=== PATIENT | female | born 1975 | race American Indian/Alaskan Native ===

== ENCOUNTER 2022-01-11 20:40 | Emergency (ER) | payer SELFPAY ==
[2022-01-11] MEDS ORDERED: NALOXONE 0.4 MG/1 ML INJ IV PRN (21:21)
[2022-01-11] MEDS ORDERED: ONDANSETRON 4 MG/2 ML INJ IV ONE (21:21)
--- NOTE | 2022-01-11 21:26 | Emergency Department Report ---
<CLAIRE ZHAO - Last Filed: 01/12/22 04:21> History of Present Illness - General Chief Complaint: Overdose Stated Complaint: OVERDOSE Time Seen by Provider: 01/11/22 21:14 - Related Data Previous Rx's Medication Instructions Recorded Last Taken Type Moxifloxacin HCl [Avelox] 400 mg PO QDAY 7 Days #7 01/12/22 Unknown Rx Allergies Allergy/AdvReac Type Severity Reaction Status Date / Time Penicillins Allergy Unknown Unknown Verified 01/11/22 21:08 ED Past Medical Hx - Medications Home Medications: Home Medications Medication Instructions Recorded Confirmed Last Taken Type Moxifloxacin HCl [Avelox] 400 mg PO QDAY 7 Days #7 01/12/22 Unknown Rx ED Course - Reevaluation(s) Reevaluation #1: 01/12/22 01:27 RECEIVED SIGN OUT FROM MY [employer]. AT THE TIME OF MY EVALUATION, PATIENT AOX4; STATES SHE DIDN'T SNORT COCAINE AND PATIENT STATES SHE WILL PRODUCE URINE FOR UDS. CT CONCERN FOR BILATERAL ASPIRATION PNA; WILL START EMPERICALLY ON CEFTRIAXONE 1G + FLAGYL 500MG X1 AND D/C PATIENT ON MOXIFLOXACIN. ED Medical Decision Making - Lab Data Result diagrams: 01/11/22 21:30 01/11/22 21:30 - EKG Data -: EKG Interpreted by Me EKG shows normal: sinus rhythm Rate: normal - EKG Data 01/12/22 02:29 EKG AT 2342: SINSU RHYTHM AT 84 BPM; NO ST ELEVATION/DEPRESSION; NO WELLEN WAVE. NO PROLONG QT/QTC. ED Disposition Clinical Impression: Cocaine abuse, Amphetamine abuse, Tetrahydrocannabinol (THC) dependence, Aspiration pneumonia, Polysubstance (excluding opioids) dependence Disposition: 01 HOME / SELF CARE / HOMELESS Is pt being admited?: No Does the pt Need Aspirin: No Condition: Stable Instructions: Aspiration Pneumonia, Bacterial Pneumonia (ED) Additional Instructions: Your work-up revealed that he have aspiration pneumonia, please take the antibiotics prescribed for you and make a follow-up appointment with your primary care provider to be seen within 3 days for further outpatient evaluation. Return to the ER if you have any new symptoms. Prescriptions: Moxifloxacin HCl [Avelox] 400 mg PO QDAY 7 Days #7 Referrals: PRIMARY CARE, [Primary Care Provider] - 3-5 Days Time of Disposition: 04:08 <JAGALBERT David - Last Filed: 01/13/22 00:04> History of Present Illness - General Source: EMS Mode of arrival: Stretcher Limitations: Altered Mental Status - History of Present Illness Initial Comments: 46-year-old female with no known past medical history presents to the hospital after an unintentional drug overdose. As per EMS boyfriend at the scene states that patient snorted a line of cocaine and then became unresponsive. Upon EMS arrival patient had a respiration rate 3 breaths/min and had oral cyanosis. Initial pulse ox at the scene was 50%. Patient was treated with nasal pharyngeal airway and qih-ricab-ttie respirations and received Narcan 2 mg IM and then Narcan 2 mg IV. Patient's respirations and pulse ox improved with GCS improvement to 14 with some mild residual drowsiness. Accu-Chek 150. Patient received 750 mL of normal saline IV prior to ED arrival. Patient developed vomiting as she was being placed in her ED room. EMS reports that boyfriend fled the scene because he had active warrants. ED Review of Systems ROS: Stated complaint: OVERDOSE Other details as noted in HPI Comment: All other systems reviewed and negative ED Past Medical Hx - Past Medical History Previous Medical History?: No ED Physical Exam - General Limitations: Altered Mental Status ED Course Vital Signs 01/11/22 01/12/22 01/12/22 21:04 03:20 04:52 Temperature 98.4 F Pulse Rate 90 90 Respiratory 18 18 Rate Blood Pressure 118/81 118/69 [Left] O2 Sat by Pulse 97 99 99 Oximetry ED Medical Decision Making - Lab Data Result diagrams: 01/11/22 21:30 01/11/22 21:30 Lab Results 01/11/22 01/11/22 01/11/22 Range/Units 21:30 21:30 21:30 WBC 15.0 H (4.5-11.0) K/mm3 RBC 3.64 L (3.65-5.03) M/mm3 Hgb 11.5 (10.1-14.3) gm/dl Hct 35.0 (30.3-42.9) % MCV 96 (79-97) fl MCH 32 (28-32) pg MCHC 33 (30-34) % RDW 13.7 (13.2-15.2) % Plt Count 306 (140-440) K/mm3 Lymph % (Auto) 13.9 (13.4-35.0) % [place] % (Auto) 8.8 H (0.0-7.3) % Eos % (Auto) 0.3 (0.0-4.3) % Baso % (Auto) 0.4 (0.0-1.8) % Lymph # (Auto) 2.1 (1.2-5.4) K/mm3 [place] # (Auto) 1.3 H (0.0-0.8) K/mm3 Eos # (Auto) 0.0 (0.0-0.4) K/mm3 Baso # (Auto) 0.1 (0.0-0.1) K/mm3 Seg Neutrophils % 76.6 H (40.0-70.0) % Seg Neutrophils # 11.5 H (1.8-7.7) K/mm3 Sodium 141 (137-145) mmol/L Potassium 4.1 (3.6-5.0) mmol/L Chloride 106.2 (98-107) mmol/L Carbon Dioxide 24 (22-30) mmol/L Anion Gap 15 mmol/L BUN 11 (7-17) mg/dL Creatinine 0.7 (0.6-1.2) mg/dL Estimated GFR > 60 ml/min BUN/Creatinine Ratio 16 % Glucose 104 H (65-100) mg/dL Calcium 8.2 L (8.4-10.2) mg/dL Magnesium (1.7-2.3) mg/dL Total Bilirubin 0.30 (0.1-1.2) mg/dL AST 18 (5-40) units/L ALT 11 (7-56) units/L Alkaline Phosphatase 73 (35-129) units/L Total Creatine Kinase 88 (30-135) units/L Total Protein 6.8 (6.3-8.2) g/dL Albumin 4.3 (3.9-5) g/dL Albumin/Globulin Ratio 1.7 % HCG, Quant 1.00 (0-4) mIU/mL Urine Color (Yellow) Urine Turbidity (Clear) Specific [place] (Man) (1.003-1.030) Ur Protein (Man) (Negative) mg/dL Ur Ketones (Man) (Negative) Ur Nitrite (Man) (Negative) Ur Reducing Substances Urine Bilirubin (Man) (Negative) Urine Ictotest Leukocyte Esterase (Man) (Negative) Urine WBC (Auto) (0.0-6.0) /HPF Urine RBC (Auto) (0.0-6.0) /HPF U Epithel Cells (Auto) (0-13.0) /HPF Urine Bacteria (Auto) (Negative) /HPF Urine RBC (Manual) (Negative) Urine Mucus /HPF Salicylates (2.8-20.0) mg/dL Urine Opiates Screen Urine Methadone Screen Acetaminophen (10.0-30.0) ug/mL Ur Barbiturates Screen Ur Phencyclidine Scrn Ur Amphetamines Screen U Benzodiazepines Scrn Urine Cocaine Screen U Marijuana (THC) Screen Drugs of Abuse Note Plasma/Serum Alcohol (0-0.07) % 01/11/22 01/11/22 01/11/22 Range/Units 21:30 21:30 21:30 WBC (4.5-11.0) K/mm3 RBC (3.65-5.03) M/mm3 Hgb (10.1-14.3) gm/dl Hct (30.3-42.9) % MCV (79-97) fl MCH (28-32) pg MCHC (30-34) % RDW (13.2-15.2) % Plt Count (140-440) K/mm3 Lymph % (Auto) (13.4-35.0) % [place] % (Auto) (0.0-7.3) % Eos % (Auto) (0.0-4.3) % Baso % (Auto) (0.0-1.8) % Lymph # (Auto) (1.2-5.4) K/mm3 [place] # (Auto) (0.0-0.8) K/mm3 Eos # (Auto) (0.0-0.4) K/mm3 Baso # (Auto) (0.0-0.1) K/mm3 Seg Neutrophils % (40.0-70.0) % Seg Neutrophils # (1.8-7.7) K/mm3 Sodium (137-145) mmol/L Potassium (3.6-5.0) mmol/L Chloride (98-107) mmol/L Carbon Dioxide (22-30) mmol/L Anion Gap mmol/L BUN (7-17) mg/dL Creatinine (0.6-1.2) mg/dL Estimated GFR ml/min BUN/Creatinine Ratio % Glucose (65-100) mg/dL Calcium (8.4-10.2) mg/dL Magnesium (1.7-2.3) mg/dL Total Bilirubin (0.1-1.2) mg/dL AST (5-40) units/L ALT (7-56) units/L Alkaline Phosphatase (35-129) units/L Total Creatine Kinase (30-135) units/L Total Protein (6.3-8.2) g/dL Albumin (3.9-5) g/dL Albumin/Globulin Ratio % HCG, Quant (0-4) mIU/mL Urine Color (Yellow) Urine Turbidity (Clear) Specific [place] (Man) (1.003-1.030) Ur Protein (Man) (Negative) mg/dL Ur Ketones (Man) (Negative) Ur Nitrite (Man) (Negative) Ur Reducing Substances Urine Bilirubin (Man) (Negative) Urine Ictotest Leukocyte Esterase (Man) (Negative) Urine WBC (Auto) (0.0-6.0) /HPF Urine RBC (Auto) (0.0-6.0) /HPF U Epithel Cells (Auto) (0-13.0) /HPF Urine Bacteria (Auto) (Negative) /HPF Urine RBC (Manual) (Negative) Urine Mucus /HPF Salicylates < 0.3 L (2.8-20.0) mg/dL Urine Opiates Screen Urine Methadone Screen Acetaminophen 5.0 L (10.0-30.0) ug/mL Ur Barbiturates Screen Ur Phencyclidine Scrn Ur Amphetamines Screen U Benzodiazepines Scrn Urine Cocaine Screen U Marijuana (THC) Screen Drugs of Abuse Note Plasma/Serum Alcohol < 0.01 (0-0.07) % 01/11/22 01/12/22 01/12/22 Range/Units 21:30 03:07 03:07 WBC (4.5-11.0) K/mm3 RBC (3.65-5.03) M/mm3 Hgb (10.1-14.3) gm/dl Hct (30.3-42.9) % MCV (79-97) fl MCH (28-32) pg MCHC (30-34) % RDW (13.2-15.2) % Plt Count (140-440) K/mm3 Lymph % (Auto) (13.4-35.0) % [place] % (Auto) (0.0-7.3) % Eos % (Auto) (0.0-4.3) % Baso % (Auto) (0.0-1.8) % Lymph # (Auto) (1.2-5.4) K/mm3 [place] # (Auto) (0.0-0.8) K/mm3 Eos # (Auto) (0.0-0.4) K/mm3 Baso # (Auto) (0.0-0.1) K/mm3 Seg Neutrophils % (40.0-70.0) % Seg Neutrophils # (1.8-7.7) K/mm3 Sodium (137-145) mmol/L Potassium (3.6-5.0) mmol/L Chloride (98-107) mmol/L Carbon Dioxide (22-30) mmol/L Anion Gap mmol/L BUN (7-17) mg/dL Creatinine (0.6-1.2) mg/dL Estimated GFR ml/min BUN/Creatinine Ratio % Glucose (65-100) mg/dL Calcium (8.4-10.2) mg/dL Magnesium 2.10 (1.7-2.3) mg/dL Total Bilirubin (0.1-1.2) mg/dL AST (5-40) units/L ALT (7-56) units/L Alkaline Phosphatase (35-129) units/L Total Creatine Kinase (30-135) units/L Total Protein (6.3-8.2) g/dL Albumin (3.9-5) g/dL Albumin/Globulin Ratio % HCG, Quant (0-4) mIU/mL Urine Color Yellow (Yellow) Urine Turbidity Clear (Clear) Specific [place] (Man) 1.005 (1.003-1.030) Ur Protein (Man) <30 mg dl (Negative) mg/dL Ur Ketones (Man) Negative (Negative) Ur Nitrite (Man) Negative (Negative) Ur Reducing Substances Not Reportable Urine Bilirubin (Man) Negative (Negative) Urine Ictotest Not Reportable Leukocyte Esterase (Man) Negative (Negative) Urine WBC (Auto) < 1.0 (0.0-6.0) /HPF Urine RBC (Auto) < 1.0 (0.0-6.0) /HPF U Epithel Cells (Auto) 2.0 (0-13.0) /HPF Urine Bacteria (Auto) 1+ (Negative) /HPF Urine RBC (Manual) Negative (Negative) Urine Mucus Few /HPF Salicylates (2.8-20.0) mg/dL Urine Opiates Screen Presumptive negative Urine Methadone Screen Presumptive negative Acetaminophen (10.0-30.0) ug/mL Ur Barbiturates Screen Presumptive negative Ur Phencyclidine Scrn Presumptive negative Ur Amphetamines Screen Presumptive positive U Benzodiazepines Scrn Presumptive negative Urine Cocaine Screen Presumptive positive U Marijuana (THC) Screen Presumptive positive Drugs of Abuse Note Disclamer Plasma/Serum Alcohol (0-0.07) % - Radiology Data Radiology results: report reviewed (Imaging studies reviewed) - Medical Decision Making pt was signed out to my colleague DR Beauchamp to follow-up CT chest result and reevaluate patient to determine disposition. No acute fracture CT facial bones. No acute abnormality noted on CT head. Chest x-ray findings of possible breast tissue noted however, CT ordered to rule out aspiration given episode of respiratory depression & cyanosis Critical Care Time: No Critical care attestation.: If time is entered above; I have spent that time in minutes in the direct care of this critically ill patient, excluding procedure time.
[2022-01-11 21:58] LABS: Basophils # (Auto) 0.1 K/mm3 (0.0-0.1); Basophils % (Auto) 0.4 % (0.0-1.8); Eosinophils % (Auto) 0.3 % (0.0-4.3); Hemoglobin 11.5 gm/dl (10.1-14.3); Lymphocytes # (Auto) 2.1 K/mm3 (1.2-5.4); Lymphocytes % (Auto) 13.9 % (13.4-35.0); Mean Corpuscular HGB Conc 33 % (30-34); Mean Corpuscular Volume 96 fl (79-97); Monocytes # (Auto) 1.3 K/mm3 (0.0-0.8); Monocytes % (Auto) 8.8 % (0.0-7.3); Platelet Count 306 K/mm3 (140-440); Red Blood Count 3.64 M/mm3 (3.65-5.03); Red Cell Distribution Width 13.7 % (13.2-15.2)
[2022-01-11 22:38] LABS: Alanine Aminotransferase 11 units/L (7-56); Albumin 4.3 g/dL (3.9-5); Blood Urea Nitrogen 11 mg/dL (7-17); Calcium 8.2 mg/dL (8.4-10.2); Hemolysis Index 14
[2022-01-11 22:50] LABS: BUN/Creatinine Ratio 16
--- NOTE | 2022-01-11 22:53 | Cat Scan Report ---
CT head/brain wo con INDICATION / CLINICAL INFORMATION: overdose. TECHNIQUE: Axial CT imaging of the brain was obtained without contrast. Coronal and sagittal reformatted imaging obtained and reviewed. All CT scans at this location are performed using CT dose reduction for ALAR A by means of automated exposure control. COMPARISON: None available. FINDINGS: No intracranial hemorrhage, mass, or midline shift is noted. No extra-axial fluid collection or sugge stion of acute territorial infarction. Ventricular system and basilar cisterns are unremarkable. Visualized paranasal sinuses demonstrate an air-fluid level within the left maxillary antrum. The rem ainder of the paranasal sinuses and mastoid air cells are well aerated and clear. No calvarial fractu re identified. IMPRESSION: 1. No acute intracranial abnormality. 2. There is an air-fluid level within the left maxillary sinus. Signer Name: Sofia Rodriguez MD Signed: 01/11/2022 10:49 PM Workstation Name: [id number]
--- NOTE | 2022-01-11 23:00 | Cat Scan Report ---
CT facial bones wo con INDICATION / CLINICAL INFORMATION: overdose, left periorbital ecchymosis. TECHNIQUE: Axial CT imaging of the facial bones was obtained without contrast. Coronal and sagittal reformatted imaging obtained and reviewed. All CT scans at this location are performed using CT dose reduction f or ALARA by means of automated exposure control. COMPARISON: None available. FINDINGS: The left orbit is intact. There is mild edema in the left periorbital soft tissues. The globe is inta ct. There is a small to moderate sized air-fluid level within the left maxillary sinus. No visible fractu re of the sinuses identified. IMPRESSION: 1. The left orbit is intact. There is very mild periorbital soft tissue edema noted. 2. Small to moderate sized air-fluid level within the left maxillary antrum without associated visibl e sinus fracture. Signer Name: Sofia Rodriguez MD Signed: 01/11/2022 10:56 PM Workstation Name: [id number]
--- NOTE | 2022-01-11 23:16 | XRay Report ---
CHEST 1 VIEW INDICATION / CLINICAL INFORMATION: overdose/hypoxia. COMPARISON: None available. FINDINGS: SUPPORT DEVICES: None. HEART / MEDIASTINUM: No significant abnormality. LUNGS / PLEURA: Increased density over both midlungs is felt to be most likely due to overlying dense breast tissue rather than pulmonary process. No pneumothorax. ADDITIONAL FINDINGS: No significant additional findings. IMPRESSION: 1. No definite acute findings. 2. Increased density in both mid lung regions is more than likely overlying dense breast tissue. Signer Name: Sofia Rodriguez MD Signed: 01/11/2022 11:12 PM Workstation Name: [id number]
[2022-01-11] MEDS ORDERED: SODIUM CHLORIDE 0.9% 1000 ML 1,000 ML IV ONE (23:25)
--- NOTE | 2022-01-12 01:01 | Cat Scan Report ---
CT chest w con INDICATION / CLINICAL INFORMATION: drug overdose, cyanosis. TECHNIQUE: Axial CT imaging of chest was obtained with 100 cc Omnipaque 350 IV contrast. Coronal and sagittal re formatted imaging obtained and reviewed. All CT scans at this location are performed using CT dose r eduction for ALARA by means of automated exposure control. COMPARISON: Chest radiograph earlier today FINDINGS: CT chest with IV contrast demonstrates significant symmetrical airspace disease throughout the superi or segments of both lower lobes. The distribution would suggest significant bilateral aspiration pneu monia. Upper lung duckworth are clear. No pleural effusion. No pneumothorax. No mediastinal abnormality. Thoracic aorta is intact. Heart size is normal. No pericardial effusion. No coronary artery calcification. Imaging of the upper abdomen is grossly negative. Review of skeletal structures demonstrates no acute significant osseous abnormality. IMPRESSION: 1. Significant airspace disease is noted throughout the superior segments of both lower lobes. Distri bution would suggest significant bilateral aspiration pneumonia. Signer Name: Sofia Rodriguez MD Signed: 01/12/2022 12:57 AM Workstation Name: [id number]
[2022-01-12] MEDS ORDERED: cefTRIAXone/NS 1 GM/50 ML 1 GM/50 ML BAG IV ONE (01:30)
[2022-01-12] MEDS ORDERED: metroNIDAZOLE/NS 500 MG/100 ML 500 MG/100 ML BAG IV ONE (01:30)
[2022-01-12 03:34] LABS: Bacteria,Urine 1+ /HPF (Negative); Color,Urine Yellow (Yellow); Mucus,Urine FEW /HPF; RBC,Urine < 1.0 /HPF (0.0-6.0)
[2022-01-12 03:35] LABS: WBC,Urine < 1.0 /HPF (0.0-6.0)
[2022-01-12 03:42] LABS: Amphetamine Screen,Urine PRESUMPTIVE POSITIVE; Benzodiazepines Screen,Urine PRESUMPTIVE NEGATIVE; Cannabinoid Screen,Urine PRESUMPTIVE POSITIVE; Cocaine Screen,Urine PRESUMPTIVE POSITIVE; Methadone Screen,Urine PRESUMPTIVE NEGATIVE; Opiate Screen,Urine PRESUMPTIVE NEGATIVE
[2022-01-12 04:57] VITALS: BP 118/69
== END 2022-01-12 04:53 | disposition home or self-care (01) ==
LOC: ED 20:40
DX: F14.10 Cocaine abuse, uncomplicated (principal); F15.10 Other stimulant abuse, uncomplicated; F19.20 Other psychoactive substance dependence, uncomplicated; J69.0 Pneumonitis due to inhalation of food and vomit; Z88.0 Allergy status to penicillin
CPT/HCPCS: 36415; 70450; 70486; 71045; 71260; 80053; 80307; 81001; 82550; 83735; 84702; 85025; 93005; 99284; Q9967; 80320; G0480